=== PATIENT | female | born 1995 | race Caucasian/White ===

== ENCOUNTER → 2021-10-01 | Day surgery (SDC) | payer OTHER ==
[~2021-10-01] VITALS: Ht 170.2 cm; Wt 102.3 kg
[~2021-10-01] MED LIST: ACETAMINOPHEN500 M1 PO; COLACE100 MG PO; MOTRIN600 MG PO; OXY-IR 5MG5 MG PO
[2021-10-01 06:05] LABS: BASOPHIL 0.2 % (0-2); EOSINOPHIL 0.6 % (0-5); HCT 38.6 % (37.0-47.0); HGB 12.7 g/dl (12.5-16.0); LYMPHOCYTE 13.1 % (15-48); MCH 28.9 pg (25.0-31.0); MCHC 32.9 g/dL (32.0-36.0); MCV 87.9 fL (78.0-100.0); MONOCYTE 6.1 % (0-12); MPV 10.2 fL (6.0-9.5); NEUTROPHIL 79.6 % (41-80); NRBC 0; PLT 254 K/uL (150-400); RBC 4.39 M/uL (4.20-5.40); RDW 12.8 % (11.5-14.0); WBC 14.3 K/uL (4.0-10.5)
[2021-10-01 07:01] LABS: ALBUMIN 3.9 g/dL (3.4-5.0); BILIRUBIN - TOTAL 0.4 mg/dL (0.2-1.0); BUN/CREAT RATIO (CALC) 16.7 RATIO; CREATININE 0.66 mg/dL (0.51-0.95); GLOBULIN (CALCULATION) 3.6 g/dL; LACTIC ACID 2.2 mmol/L (0.4-1.9); POTASSIUM 3.6 mmol/L (3.5-5.1); TOTAL PROTEIN 7.5 g/dL (6.4-8.2)
[2021-10-01 07:39] LABS: BILIRUBIN NEGATIVE (NEGATIVE); BLOOD NEGATIVE Ery/uL (NEGATIVE); CLARITY CLEAR (CLEAR); COLOR YELLOW (YELLOW); GLUCOSE (U) NORMAL (NORMAL); LEUKOCYTES TRACE Leu/uL (NEGATIVE); NITRITE NEGATIVE (NEGATIVE); PROTEIN NEGATIVE (NEGATIVE); UROBILINOGEN 0.2 mg/dL (0.2-1.0); pH 7.5 (5.0-9.0)
[2021-10-01 09:01] LABS: BACTERIA TRACE
== END | disposition home or self-care (01) ==
LOC: FER 05:36 → FOR 09:49
PROVIDERS: Emergency Medicine Emergency Medical Services
DX: K35.80 Unspecified acute appendicitis (principal); K44.9 Diaphragmatic hernia without obstruction or gangrene; R16.0 Hepatomegaly, not elsewhere classified; M62.08 Separation of muscle (nontraumatic), other site; Z88.1 Allergy status to other antibiotic agents; Z20.822 Contact with and (suspected) exposure to COVID-19
CPT/HCPCS: 36415; 80053; 81001; 83605; 85025; J1100; J1170; J1644; J1885; J2250; J2405; J2543; J2704; J3010; J7120; Q9967; U0002

== ENCOUNTER → 2022-01-17 | Day surgery (SDC) | payer OTHER ==
[~2022-01-17] VITALS: Ht 170.2 cm; Wt 110.4 kg
[~2022-01-17] MED LIST changes: +LEXAPRO 10MG TA10 MG PO; +ONDANSETRON HCL4 MG PO
[2022-01-17 12:58] LABS: HCG (URINE) SCREEN NEGATIVE (NEGATIVE)
[2022-01-17 14:00] LABS: ALBUMIN 4.1 g/dL (3.4-5.0); BILIRUBIN - TOTAL 0.6 mg/dL (0.2-1.0); BUN/CREAT RATIO (CALC) 14.9 RATIO; CREATININE 0.74 mg/dL (0.51-0.95); GLOBULIN (CALCULATION) 3.8 g/dL; POTASSIUM 3.7 mmol/L (3.5-5.1); TOTAL PROTEIN 7.9 g/dL (6.4-8.2)
== END | disposition home or self-care (01) ==
LOC: FAS 07:30
PROVIDERS: Student in an Organized Health Care Education/Training Program
DX: K80.10 Calculus of gallbladder with chronic cholecystitis without obstruction (principal); K42.0 Umbilical hernia with obstruction, without gangrene; M62.08 Separation of muscle (nontraumatic), other site; K76.0 Fatty (change of) liver, not elsewhere classified; K21.9 Gastro-esophageal reflux disease without esophagitis; Z88.1 Allergy status to other antibiotic agents; Z87.891 Personal history of nicotine dependence
CPT/HCPCS: 36415; 80053; 82150; 83690; 84703; J1170; J1644; J1885; J2001; J2250; J2405; J2550; J2704; J2710; J3010; J7120; Q9967

== ENCOUNTER 2022-05-05 17:32 | Emergency (ER) | payer OTHER ==
[2022-05-05 19:33] LABS: BASOPHIL 0.4 % (0-2); EOSINOPHIL 0.6 % (0-5); HCT 39.2 % (37.0-47.0); HGB 13.1 g/dl (12.5-16.0); LYMPHOCYTE 31.8 % (15-48); MCH 29.8 pg (25.0-31.0); MCHC 33.4 g/dL (32.0-36.0); MCV 89.1 fL (78.0-100.0); MONOCYTE 6.5 % (0-12); MPV 10.1 fL (6.0-9.5); NEUTROPHIL 60.5 % (41-80); NRBC 0; PLT 302 K/uL (150-400); RDW 13.2 % (11.5-14.0)
[2022-05-05 19:38] LABS: BILIRUBIN NEGATIVE (NEGATIVE); BLOOD NEGATIVE Ery/uL (NEGATIVE); CLARITY CLEAR (CLEAR); COLOR YELLOW (YELLOW); GLUCOSE (U) NORMAL (NORMAL); LEUKOCYTES TRACE Leu/uL (NEGATIVE); NITRITE NEGATIVE (NEGATIVE); PROTEIN NEGATIVE (NEGATIVE); SPECIFIC GRAVITY 1.025 (1.001-1.030); UROBILINOGEN 0.2 mg/dL (0.2-1.0)
[2022-05-05 19:49] LABS: URINARY RBC RARE
[2022-05-05 19:50] LABS: BACTERIA TRACE
[2022-05-05 19:52] LABS: ALBUMIN 3.8 g/dL (3.4-5.0); BILIRUBIN - TOTAL 0.4 mg/dL (0.2-1.0); CREATININE 0.75 mg/dL (0.51-0.95); POTASSIUM 3.7 mmol/L (3.5-5.1); TOTAL PROTEIN 7.8 g/dL (6.4-8.2)
[2022-05-05 22:05] LABS: CORONAVIRUS 2019 SARS-COV-2 NEGATIVE (NEGATIVE); INFLUENZA A NAA NEGATIVE (NEGATIVE)
[2022-05-05] MEDS ORDERED: ONDANSETRON HCL4 MG PO (22:23)
== END 2022-05-05 23:05 | disposition home or self-care (01) ==
LOC: FER 17:32
PROVIDERS: Nurse Practitioner Family
DX: K62.5 Hemorrhage of anus and rectum (principal); R10.84 Generalized abdominal pain; R11.0 Nausea; R42 Dizziness and giddiness; Z20.822 Contact with and (suspected) exposure to COVID-19; Z88.0 Allergy status to penicillin; Z88.8 Allergy status to other drugs, medicaments and biological substances
CPT/HCPCS: 36415; 80053; 81001; 82150; 82270; 83690; 85025; J2405; J7030; U0002